=== PATIENT | female | born 1955 | race Caucasian/White ===

== ENCOUNTER 2017-06-21 17:06 | Emergency (ER) | payer OTHER ==
[~2017-06-21] VITALS: Ht 149.9 cm; Wt 52.3 kg
[~2017-06-21 17:06] MED LIST: BACT800T5 PO; DIFL150T PO; ESTR1 PO; PRED10PA PO; PRED20 PO; TAB-TAB PO; VENTAER INH
[2017-06-21 17:12] VITALS: BP 127/61; PULSE 69; RESP 16; TEMP 98.1; O2SAT 98
[2017-06-21] MEDS ORDERED: HORMONES (17:21)
--- NOTE | 2017-06-21 17:31 | PD ---
HPI Chief Complaint: Musculoskeletal Complaint Time Seen by Provider: 17:29 Travel History International Travel<30 days: No Contact w/Intl Traveler<30days: No Traveled to known affect area: No History of Present Illness HPI This patient complains of right shoulder pain. She has chronic pain and has a rotator cuff tear and is due for surgery in 3 weeks. She was worried that the shoulder was dislocated. There is no direct injury to it recently. Severity is moderate. 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) Hypertension: Yes Musculoskeletal: Yes (CHRONIC HIP AND BACK PAIN) Immunizations Current: No Migraines: Yes Menopausal: Yes : 3 Para: 3 Ectopic : No Ovarian Cysts: No Tubal Ligation: No Past Surgical History Appendectomy: Yes (WITH HYSTERECTOMY) Hysterectomy: Yes Social History Alcohol Use: No Tobacco Use: No Substance Use: No Allergies-Medications (Allergen,Severity, Reaction): Coded Allergies: sulfamethoxazole (Unverified Allergy, Severe, swelling lip, hands, rash, ) trimethoprim (Unverified Allergy, Severe, swelling lip, hands, rash, ) codeine (Unverified Allergy, Unknown, Hallucinations, 06/21/17) Reported Meds & Prescriptions Reported Meds & Active Scripts Active Reported [Hormones] Review of Systems HENT: No: Headaches Cardiovascular: No: Chest Pain or Discomfort Respiratory: No: Cough Physical Exam Narrative SKIN: Focused skin assessment reveals no rash or ulcers. Skin is warm and dry. Palpation shows no induration or nodules. Psych: Normal mood and affect. Normal insight and judgment. NECK: Symmetrical appearance, midline trachea. No mass or crepitus. Thyroid without enlargement, tenderness, or mass. Right shoulder: Has decent passive range of motion. No bony tenderness. No bruising or swelling or deformity. Data Data Last Documented VS Vital Signs Date Time Temp Pulse Resp B/P (MAP) Pulse Ox O2 Delivery O2 Flow Rate FiO2 06/21/17 17:12 98.1 69 16 127/61 (83) 98 Orders Orders Shoulder, Limited(2vws) (06/21/17 ) Splint Or Brace Apply/Monitor (06/21/17 18:14) MDM Medical Decision Making Medical Screen Exam Complete: Yes Emergency Medical Condition: Yes Medical Record Reviewed: Yes Differential Diagnosis Rotator cuff tear, dislocation, contusion Narrative Course I have reviewed the patient's electronic medical record. I reviewed her MRI results which show to rotator cuff muscles with tear I reviewed her right shoulder x-rays which show some degenerative change but no fracture or dislocation I gave her sling She will follow-up with her orthopedist Diagnosis Primary Impression: Rotator cuff tear, right Qualified Codes: M75.101 - Unspecified rotator cuff tear or rupture of right shoulder, not specified as traumatic Additional Instructions: Wear sling as needed Follow-up with orthopedist Med/Other Pt SpecificInfo: Other Disposition: 01 DISCHARGE HOME Condition: Stable Clifford Hadley MD Jun 21, 2017 17:31
--- NOTE | 2017-06-21 17:57 | RADRPT ---
EXAM DATE/TIME: 06/21/2017 17:39 [facility] COMPARISON: No previous studies available for comparison. INDICATIONS : Right shoulder pain. MEDICAL HISTORY : right rotator cuff tear. SURGICAL HISTORY : None. ENCOUNTER: Initial ACUITY: 1 day PAIN SCORE: 8/10 LOCATION: Right shoulder. FINDINGS: Two view examination of the right shoulder demonstrates no evidence of fracture or dislocation. There are degenerative changes. No fracture seen. Bony mineralization is normal. CONCLUSION: Degenerative changes without fracture. Mustapha Horn MD on June 21, 2017 at 17:54 Board Certified Radiologist. This report was verified electronically.
== END 2017-06-21 18:32 | disposition home or self-care (01) ==
LOC: PHEFT 17:06
DX: M75.101 Unspecified rotator cuff tear or rupture of right shoulder, not specified as traumatic (principal)
CPT/HCPCS: 73030; 99283